=== PATIENT | female | born 1970 | race Caucasian/White ===

== ENCOUNTER 2017-02-19 01:48 | Emergency (ER) | payer OTHER ==
[~2017-02-19] VITALS: Ht 167.6 cm; Wt 68.2 kg
--- OUTSIDE RECORDS SUMMARY | 2017-02-19 01:52 | XMS REPORT | Continuity of Care Document ---
Author Author [facility] Organization [facility] Address Unknown Phone Unavailable Care Team Providers Care Animal Shelter Manager Name Role Phone Steven Isabel PCP Unavailable Source Comments Some departments are not documenting in the electronic medical record. If you do not see the information that you expected, contact Release of Information in the Health Information Management department at [phone] for further assistance in locating additional records.[facility] Active Allergies and Adverse Reactions Not on File Current Medications Not on file Active Problems Not on file Social History Tobacco Use Types Packs/Day Years Used Date Never Assessed Plan of Care Health Maintenance Due Date Last Done Comments Physical (Comprehensive) 1975 Exam Pertussis Vaccine 1979 Tetanus Vaccine 1985 Cervical Cancer Screening 1989 Breast Cancer Screening 2008 Influenza Vaccine 07/07/2017 Results from Last 3 Months Not on file
--- OUTSIDE RECORDS SUMMARY | 2017-02-19 01:54 | XMS REPORT | Continuity of Care Document ---
Author Author [facility] Organization [facility] Address Unknown Phone Unavailable Care Team Providers Care Table Cut Off Saw Operator Name Role Phone Steven Isabel PCP Unavailable Source Comments Some departments are not documenting in the electronic medical record. If you do not see the information that you expected, contact Release of Information in the Health Information Management department at [phone] for further assistance in locating additional records.[facility] Active Allergies and Adverse Reactions Not on [...]
--- NOTE | 2017-02-19 02:15 | NUR ---
Noted that pt's o2 sats were in the upper 80's, 02 on at 3 liters per nc sats up to 98%
[2017-02-19 02:19] LABS: BASOPHILS % (AUTO) 0 % (0-2); EOSINOPHILS # (AUTO) 0.3 10^3uL; EOSINOPHILS % (AUTO) 3 % (0-4); LYMPHOCYTES # (AUTO) 2.8 X10^3; MEAN CORPUSCULAR HEMOGLOBIN 29.9 PG (26.0-34.0); MEAN CORPUSCULAR VOLUME 91 FL (80-100); MEAN PLATELET VOLUME 10.5 FL (6.0-9.5); MONOCYTES # (AUTO) 0.7 X10^3; MONOCYTES % (AUTO) 7 % (3-11); NEUTROPHILS # (AUTO) 5.8 X10^3; NEUTROPHILS % (AUTO) 60 % (51-67); PLATELET COUNT 301 10^3uL (150-450); WHITE BLOOD COUNT 9.59 10^3uL (4.0-11.0)
--- NOTE | 2017-02-19 02:23 | NUR ---
On arrival EMS reports that pt was found down [place] a local alleyway [place] far [place], pt has a hematoma to abover her right eye, with some bleeding that is controlled, and has bruising to her left hand noted. pt opens her eyes, but doesn't verbally respond to anyone. Pt has a c-collar on on arrival and she pulls at it on occasion.
--- NOTE | 2017-02-19 02:30 | NUR ---
pt restful at this time, she pulls at the c-collar at times, pt does open her eyes when asked if she knows where she is she shakes her head no, but does not verbally respond.
[2017-02-19 02:32] LABS: ALBUMIN 4.3 g/dL (3.4-5.0); ANION GAP 19.7 MEQ/L (3-15); CALCULATED IONIZED CALCIUM 3.7 mg/dL (3.8-4.6); TOTAL PROTEIN 7.5 g/dL (6.4-8.5)
--- NOTE | 2017-02-19 03:00 | NUR ---
Pt given more warm blankets, she is more responsive than on arrival.
--- NOTE | 2017-02-19 03:35 | NUR ---
Pt is more alert, did attempt to have pt open her phone code so that RN could try and notify someone of her being transferred to [place], but pt is unable to help with this. She does say "I can't", she denies any pain.
[2017-02-19 04:27] VITALS: BP 121/83
--- NOTE | 2017-02-19 07:43 | Diagnostic Imaging Report ---
PROCEDURE: CT head and CT cervical spine without contrast. TECHNIQUE: Multiple contiguous axial images were obtained through the brain and cervical spine without the use of intravenous contrast. Sagittal and coronal reformations through the cervical spine were then performed. INDICATION: Patient found down. Unresponsive. COMPARISON: None available. FINDINGS: Head: There is hyperdense acute subarachnoid hemorrhage in the left temporal region. There is also a small amount of subarachnoid hemorrhage in the right frontotemporal region. No intraventricular hemorrhage. No subdural or epidural hematoma. No hydrocephalus or midline shift. No evidence of territorial infarct. Basilar cisterns remain patent. Right supraorbital/frontal scalp swelling and small hematoma. No acute skull fracture. Chronic mucoperiosteal thickening in the bilateral maxillary sinuses. Other paranasal sinuses and mastoid air cells are clear. Cervical spine: No acute fracture or traumatic malalignment. 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 No significant degenerative changes in the cervical spine. Airway is patent. No cervical lymphadenopathy. Visualized thyroid is normal. Lung apices are clear. IMPRESSION: 1. Multifocal subarachnoid hemorrhage located in the right frontotemporal and left temporoparietal regions. Given the associated right frontal and supraorbital scalp swelling and hematoma, this is likely posttraumatic subarachnoid hemorrhage. 2. No intraventricular extension of hemorrhage. 3. No acute fracture or traumatic malalignment of the cervical spine. 4. Findings are in agreement with the preliminary report. Dictated by: Dictated on workstation # [id number]
== END 2017-02-19 04:20 | disposition short-term general hospital (02) ==
LOC: ED 01:50
DX: S06.6X9A Traumatic subarachnoid hemorrhage with loss of consciousness of unspecified duration, initial encounter (principal); F10.129 Alcohol abuse with intoxication, unspecified; Y90.8 Blood alcohol level of 240 mg/100 ml or more
CPT/HCPCS: 36415; 70450; 72125; 80053; 80320; 80329; 85025; 99285

== ENCOUNTER → 2017-02-19 | Outpatient (CLI) | payer OTHER ==
[~2017-02-19] MED LIST: AZIT250T81 PO; METH4TAB27 PO
== END ==
LOC: EMS 01:55
PROVIDERS: ATTEND Obstetrics & Gynecology
DX: R41.82 Altered mental status, unspecified (principal)

== ENCOUNTER → 2017-03-31 | Outpatient (CLI) | payer OTHER ==
--- NOTE | 2017-03-31 13:47 | Diagnostic Imaging Report ---
PROCEDURE: CT head without contrast. TECHNIQUE: Multiple contiguous axial images were obtained through the brain without the use of intravenous contrast. INDICATION: Subarachnoid hemorrhage followup. Comparison made with study from 02/19/2017. The ventricles are normal in size, shape and position. There are no masses or hemorrhages. There are no extra-axial fluid collections. There are no skull fractures seen. IMPRESSION: Negative CT head. Dictated by: Dictated on workstation # [id number]
== END ==
LOC: RAD 13:07
PROVIDERS: ATTEND Neurological Surgery
DX: S06.0X0D Concussion without loss of consciousness, subsequent encounter (principal); S06.310D Contusion and laceration of right cerebrum without loss of consciousness, subsequent encounter; X58.XXXD Exposure to other specified factors, subsequent encounter
CPT/HCPCS: 70450